=== PATIENT | male | born 2000 | race Hispanic/Latino ===

== ENCOUNTER 2021-01-26 17:52 | Emergency (ER) | payer MEDICAID ==
[~2021-01-26] VITALS: Ht 165.1 cm; Wt 59.0 kg
[2021-01-26] MEDS ORDERED: FLEXERIL5 M1 PO (18:50)
[2021-01-26 19:00] VITALS: BP 130/72
== END 2021-01-26 19:03 | disposition home or self-care (01) ==
LOC: ED 17:52
DX: M54.6 Pain in thoracic spine (principal)

== ENCOUNTER 2022-10-07 19:18 | Emergency (ER) | payer MEDICAID ==
[~2022-10-07] VITALS: Ht 165.1 cm; Wt 68.0 kg
[~2022-10-07 19:18] MED LIST: FLEXERIL5 M1 PO
[2022-10-07 21:11] LABS: URINE BILIRUBIN - DIPSTICK NEGATIVE (NEGATIVE); URINE BLOOD DIPSTICK TRACE-INTACT (NEGATIVE); URINE COLOR YELLOW; URINE GLUCOSE - DIPSTICK NEGATIVE (NEGATIVE); URINE KETONE NEGATIVE (NEGATIVE); URINE LEUK ESTERASE NEGATIVE (NEGATIVE); URINE PROTEIN - DIPSTICK NEGATIVE (NEG-TRACE); URINE UROBILINOGEN - DIPSTICK 0.2 E.U./dL (0.2)
[2022-10-07 21:19] LABS: URINE NITRITE - DIPSTICK NEGATIVE (Negative)
[2022-10-08 03:15] VITALS: BP 127/58
== END 2022-10-07 22:45 | disposition left against medical advice (07) ==
LOC: ED 19:18
PROVIDERS: Emergency Medicine
DX: Z53.21 Procedure and treatment not carried out due to patient leaving prior to being seen by health care provider (principal)

== ENCOUNTER 2024-01-08 16:06 | Observation (INO) | payer OTHER ==
[2024-01-08] VITALS (8 sets, daily range): BP systolic 70–129; BP diastolic 49–85
[~2024-01-08] VITALS: Ht 165.1 cm; Wt 63.8 kg
--- NOTE | 2024-01-08 16:08 | NUR ---
PT BROUGHT BACK TO ER ROOM 15 VIA EMS
[2024-01-08] MEDS ORDERED: ONDANSETRON HCl 4 MG/2 ML SDV IV ONE (16:20)
[2024-01-08] MEDS ORDERED: KETOROLAC TROMETHAMINE 30 MG/ML SDV IV ONE ×2 (16:20→20:25)
[2024-01-08] MEDS ORDERED: SODIUM CHLORIDE 0.9% 1,000 ML IV ONE ×2 (16:20→18:50)
[2024-01-08 16:56] LABS: BASO% 0.2 % (0-3); EOS% 0.8 % (0-8); HEMATOCRIT 46.5 % (39.0-50.0); HEMOGLOBIN 15.6 g/dl (14.0-18.0); IMMATURE GRANULOCYTES 0.3 % (0.0-5.0); LYMPH% 18.5 % (15-41); MEAN CELL VOLUME 89.1 fL CALC (80.0-100.0); MEAN CORPUSCULAR HGB 29.9 pG CALC (26.0-32.0); MEAN CORPUSCULAR HGB CONC 33.5 g/dL CAL (32.0-36.0); NEUT# 9.03 thou/uL (1.82-7.42); NEUT% 76.2 % (42-76); RED BLOOD COUNT 5.22 mill/uL (4.70-6.10); RED CELL DISTRI WIDTH 12.5 % (11.5-15.5)
[2024-01-08 17:16] LABS: BILIRUBIN, TOTAL 1.2 mg/dL (0.2-1.3); TOTAL PROTEIN 8.5 g/dL (6.3-8.2)
[2024-01-08 17:46] LABS: URINE BILIRUBIN - DIPSTICK Negative (NEGATIVE); URINE BLOOD DIPSTICK Negative (NEGATIVE); URINE GLUCOSE - DIPSTICK Negative (NEGATIVE); URINE KETONE Negative (NEGATIVE); URINE LEUK ESTERASE Negative (NEGATIVE); URINE NITRITE - DIPSTICK Negative (Negative); URINE PROTEIN - DIPSTICK Trace mg/dL (NEG-TRACE); URINE SPECIFIC GRAVITY 1.025; URINE UROBILINOGEN - DIPSTICK 0.2 E.U./dL (0.2)
[2024-01-08 17:49] LABS: URINE COLOR Yellow
[2024-01-08] MEDS ORDERED: MORPHINE SULFATE 4 MG/ML VIAL IV ONE (18:50)
[2024-01-08] MEDS ORDERED: PIPERACILLIN Sodium-Tazobactam 3.375 GM in SODIUM CHLORIDE 0.9% 100 ML IV STA (20:11)
[2024-01-08] MEDS ORDERED: LACTATED RINGER'S 1,000 ML IV STA (20:11)
[2024-01-08] MEDS ORDERED: PROMETHAZINE HCL 25 MG/ML AMP IV ONE (20:25)
[2024-01-08] MEDS ORDERED: KETOROLAC TROMETHAMINE 30 MG/ML SDV IV PRN (21:10)
[2024-01-08] MEDS ORDERED: SODIUM CHLORIDE 0.9% 1,000 ML IV PRN ×2 (21:10→21:45)
[2024-01-08] MEDS ORDERED: PROMETHAZINE HCL 25 MG/ML AMP IV PRN (21:10)
[2024-01-08] MEDS ORDERED: ONDANSETRON HCl 4 MG/2 ML SDV IV PRN (21:10)
[2024-01-08] MEDS ORDERED: FAMOTIDINE 10MG/ML 2ML SDV IV PRN (21:10)
[2024-01-08] MEDS ORDERED: MORPHINE SULFATE 4 MG/ML VIAL IV PRN (21:10)
[2024-01-08] MEDS ORDERED: HYDROmorphone HCL 2 MG/AMP IV PRN (21:45)
--- NOTE | 2024-01-08 23:16 | NUR ---
REPORT TO PHYLLIS/MED-SUR[facility]
[2024-01-09] MEDS ORDERED: PIPERACILLIN Sodium-Tazobactam 3.375 GM in SODIUM CHLORIDE 0.9% 100 ML IV SCH ×2
--- NOTE | 2024-01-09 00:30 | NUR ---
RECEIVED FROM ER ALERT, ORIENTED X4. RESP EVEN AND UNLABORED. DENIES PAIN OR DISCOMFORT. GRANDMA AT BEDSIDE. NPO FOR SURGICAL CONSULT IN AM. VOICED UNDERSTANDING.
--- NOTE | 2024-01-09 04:00 | NUR ---
SLEEPING WELL. NO C/O PAIN. CONTINUES TO BE NPO. CALL LIOGHT IN REACH.
[2024-01-09 04:16] VITALS: BP 121/52
[2024-01-09 04:38] VITALS: BP 121/52
[2024-01-09 05:22] LABS: BASO% 0.1 % (0-3); EOS% 0.8 % (0-8); HEMATOCRIT 40.6 % (39.0-50.0); HEMOGLOBIN 14.3 g/dl (14.0-18.0); IMMATURE GRANULOCYTES 0.1 % (0.0-5.0); LYMPH% 13.6 % (15-41); MEAN CELL VOLUME 89.8 fL CALC (80.0-100.0); MEAN CORPUSCULAR HGB 31.6 pG CALC (26.0-32.0); MEAN CORPUSCULAR HGB CONC 35.2 g/dL CAL (32.0-36.0); MONO% 8.1 % (2-13); NEUT# 5.79 thou/uL (1.82-7.42); NEUT% 77.3 % (42-76); RED BLOOD COUNT 4.52 mill/uL (4.70-6.10); RED CELL DISTRI WIDTH 12.7 % (11.5-15.5)
[2024-01-09 05:50] LABS: BILIRUBIN, TOTAL 1.4 mg/dL (0.2-1.3); CREATININE 0.9 mg/dL (0.7-1.3); POTASSIUM 4.1 mmol/l (3.5-5.1)
[2024-01-09 05:52] LABS: ALBUMIN 3.6 g/dL (3.2-5.0); TOTAL PROTEIN 6.2 g/dL (6.3-8.2)
[2024-01-09 06:30] VITALS: BP 110/39
--- NOTE | 2024-01-09 07:58 | NUR ---
Pt resting with eyes closed. breathing even and unlabored. Family asl,epp at bedside. No distress, no complaints.
--- NOTE | 2024-01-09 12:06 | NUR ---
Pt resting on side with eyes closed, easily awakes. Denies pain. Family at bedside eating lunch concerned for the pt's hunger. Physician on the floor, aware.
--- NOTE | 2024-01-09 12:50 | NUR ---
Pt IV line was cut by pt 'it just broke'. IV line flushed, linens changed, no complaints. Pt upset that physician is going to discharge home today. Pt demands to speak with physician. Physician notified, awaiting orders.
--- NOTE | 2024-01-09 13:12 | NUR ---
Discharge instructions given. Patient verbalizes understanding of same. Discharged in stable condition via Wheelchair to Home with family. All belongings sent with pt.
--- NOTE | 2024-01-09 13:28 | NUR ---
Dr Wills phoned, now. Wants pt to have MRCP completed before discharge.
--- NOTE | 2024-01-09 15:13 | NUR ---
Pt ready to go to MRCP, pt refuses at last minute. Does not wish to have to wait for procedure to be completed.
--- NOTE | 2024-01-09 15:30 | NUR ---
Pt IV [id number], pt verified he had all of his belongings. Pt states Nessa will pick him up in the ER. Pt taken downstairs in a wheelchair, when we arrive at the doors, pt hops out of the WC and walks outside. Pt states 'I am fine", observe pt getting into family vehicle. No distress, no compaints.
== END 2024-01-09 15:28 | disposition home or self-care (01) | DRG 392 ==
LOC: ED 16:06 → ED-I 19:58 → ED 21:08 → MS2 21:09
PROVIDERS: Family Medicine; ADMIT Surgery; ATTEND Surgery
DX: R10.11 Right upper quadrant pain (principal); R11.0 Nausea
CPT/HCPCS: G0378; Q9967

== ENCOUNTER 2024-02-18 15:45 | Emergency (ER) | payer OTHER ==
[~2024-02-18] VITALS: Ht 165.1 cm; Wt 63.5 kg
[2024-02-18 15:59] VITALS: BP 132/76
[2024-02-18] MEDS ORDERED: SODIUM CHLORIDE 0.9% 1,000 ML IV ONE (16:00)
[2024-02-18] MEDS ORDERED: ONDANSETRON HCl 4 MG/2 ML SDV IV ONE (16:00)
[2024-02-18 16:25] LABS: BASO% 0.4 % (0-3); EOS% 3.5 % (0-8); HEMOGLOBIN 14.7 g/dl (14.0-18.0); IMMATURE GRANULOCYTES 0.1 % (0.0-5.0); LYMPH% 28.1 % (15-41); MEAN CORPUSCULAR HGB 29.8 pG CALC (26.0-32.0); MEAN CORPUSCULAR HGB CONC 34.2 g/dL CAL (32.0-36.0); MONO% 7.5 % (2-13); NEUT# 4.17 thou/uL (1.82-7.42); NEUT% 60.4 % (42-76); RED BLOOD COUNT 4.94 mill/uL (4.70-6.10)
[2024-02-18 16:32] LABS: URINE BILIRUBIN - DIPSTICK Negative (NEGATIVE); URINE BLOOD DIPSTICK Negative (NEGATIVE); URINE GLUCOSE - DIPSTICK Negative (NEGATIVE); URINE KETONE Negative (NEGATIVE); URINE LEUK ESTERASE Negative (NEGATIVE); URINE NITRITE - DIPSTICK Negative (Negative); URINE PROTEIN - DIPSTICK Negative (NEG-TRACE); URINE SPECIFIC GRAVITY >=1.030; URINE UROBILINOGEN - DIPSTICK 0.2 E.U./dL (0.2)
[2024-02-18 16:33] LABS: URINE COLOR Yellow
[2024-02-18 16:36] LABS: ALBUMIN 4.6 g/dL (3.2-5.0); BILIRUBIN, TOTAL 0.8 mg/dL (0.2-1.3); CREATININE 1.3 mg/dL (0.7-1.3); POTASSIUM 3.9 mmol/l (3.5-5.1); TOTAL PROTEIN 7.8 g/dL (6.3-8.2)
[2024-02-18] MEDS ORDERED: KETOROLAC TROMETHAMINE 30 MG/ML SDV IV ONE (17:10)
[2024-02-18 17:34] VITALS: BP 120/95
[2024-02-18 17:46] VITALS: BP 78/48
[2024-02-18 17:59] VITALS: BP 118/43
[2024-02-18] MEDS ORDERED: DICYCLOMINE HYD10 MG PO (18:15)
[2024-02-18] MEDS ORDERED: MIRALAX17 GM PO (18:15)
[2024-02-18] MEDS ORDERED: MAGNESIUM CITRATE 296 ML/BTL PO ONE (18:35)
[2024-02-18 18:47] VITALS: BP 118/43
== END 2024-02-18 18:47 | disposition home or self-care (01) | DRG 392 ==
LOC: ED 15:45
PROVIDERS: Nurse Practitioner
DX: K59.00 Constipation, unspecified (principal)
CPT/HCPCS: Q9967